=== PATIENT | female | born 1980 | race Caucasian/White ===

== ENCOUNTER → 2016-08-17 | Outpatient (CLI) | payer BC ==
[2016-08-17 12:19] LABS: SEMEN VOLUME 3.5 ML
== END | disposition home or self-care (01) ==
LOC: C.LAB 12:07
PROVIDERS: ATTEND Obstetrics & Gynecology
DX: N97.9 Female infertility, unspecified (principal)

== ENCOUNTER → 2016-10-19 | Outpatient (CLI) | payer BC | END | disposition home or self-care (01) | LOC: C.LAB 12:16 | PROVIDERS: ATTEND Obstetrics & Gynecology | DX: N97.9 Female infertility, unspecified (principal) ==

== ENCOUNTER → 2017-01-05 | Outpatient (CLI) | payer BC | END | disposition home or self-care (01) | LOC: C.LAB 10:03 | PROVIDERS: ATTEND Specialist | DX: O09.00 Supervision of pregnancy with history of infertility, unspecified trimester (principal); Z3A.00 Weeks of gestation of pregnancy not specified; Z31.41 Encounter for fertility testing ==

== ENCOUNTER → 2017-01-11 | Outpatient (CLI) | payer BC | END | disposition home or self-care (01) | LOC: C.LAB 10:50 | PROVIDERS: ATTEND Specialist | DX: Z31.41 Encounter for fertility testing (principal) ==

== ENCOUNTER → 2017-01-13 | Outpatient (CLI) | payer BC | END | disposition home or self-care (01) | LOC: C.LAB 10:44 | PROVIDERS: ATTEND Specialist | DX: Z31.41 Encounter for fertility testing (principal) ==

== ENCOUNTER → 2017-01-15 | Outpatient (CLI) | payer BC | END | disposition home or self-care (01) | LOC: C.LAB 08:19 | PROVIDERS: ATTEND Specialist | DX: Z31.41 Encounter for fertility testing (principal) ==

== ENCOUNTER → 2017-02-18 | Outpatient (CLI) | payer BC | END | disposition home or self-care (01) | LOC: C.LAB 07:22 | PROVIDERS: ATTEND Specialist | DX: O09.00 Supervision of pregnancy with history of infertility, unspecified trimester (principal); Z3A.00 Weeks of gestation of pregnancy not specified ==

== ENCOUNTER → 2017-03-03 | Outpatient (CLI) | payer BC | END | disposition home or self-care (01) | LOC: C.LAB 07:35 | PROVIDERS: ATTEND Specialist | DX: Z31.41 Encounter for fertility testing (principal) ==

== ENCOUNTER → 2017-03-21 | Outpatient (CLI) | payer BC | END | disposition home or self-care (01) | LOC: C.LAB 06:50 | PROVIDERS: ATTEND Specialist | DX: O09.00 Supervision of pregnancy with history of infertility, unspecified trimester (principal) ==

== ENCOUNTER → 2017-04-14 | Outpatient (CLI) | payer BC | END | disposition home or self-care (01) | LOC: C.LAB 07:37 | PROVIDERS: ATTEND Specialist | DX: Z31.41 Encounter for fertility testing (principal); O09.00 Supervision of pregnancy with history of infertility, unspecified trimester; Z3A.00 Weeks of gestation of pregnancy not specified ==

== ENCOUNTER → 2017-05-04 | Outpatient (CLI) | payer BC | END | disposition home or self-care (01) | LOC: C.LAB 07:24 | PROVIDERS: ATTEND Specialist | DX: Z31.41 Encounter for fertility testing (principal) ==

== ENCOUNTER → 2017-05-23 | Outpatient (CLI) | payer BC | END | disposition home or self-care (01) | LOC: C.LAB 07:31 | PROVIDERS: ATTEND Specialist | DX: O09.00 Supervision of pregnancy with history of infertility, unspecified trimester (principal); Z3A.00 Weeks of gestation of pregnancy not specified ==

== ENCOUNTER → 2017-05-25 | Outpatient (CLI) | payer BC | END | disposition home or self-care (01) | LOC: C.LAB 07:01 | PROVIDERS: ATTEND Specialist | DX: O09.00 Supervision of pregnancy with history of infertility, unspecified trimester (principal) ==

== ENCOUNTER → 2017-05-27 | Outpatient (CLI) | payer BC | END | disposition home or self-care (01) | LOC: C.LAB 06:57 | PROVIDERS: ATTEND Specialist | DX: O09.00 Supervision of pregnancy with history of infertility, unspecified trimester (principal); Z3A.00 Weeks of gestation of pregnancy not specified ==

== ENCOUNTER → 2017-06-03 | Outpatient (CLI) | payer BC ==
[~2017-06-03] MED LIST: CHOL1000 PO; CLR10 PO; ENOX40IN SQ; LBT100 PO; ONDA4TAB10 SL; PRENTAB26 PO; RANI150T3 PO
== END | disposition home or self-care (01) ==
LOC: C.LAB1850 07:01
PROVIDERS: ATTEND Obstetrics & Gynecology
DX: O20.0 Threatened abortion (principal); Z3A.00 Weeks of gestation of pregnancy not specified

== ENCOUNTER → 2017-06-24 | Outpatient (CLI) | payer BC | END | disposition home or self-care (01) | LOC: C.LABSPEC 13:16 | PROVIDERS: ATTEND Obstetrics & Gynecology | DX: O09.811 Supervision of pregnancy resulting from assisted reproductive technology, first trimester (principal) ==

== ENCOUNTER 2017-07-03 17:22 | Emergency (ER) | payer BC ==
[~2017-07-03] VITALS: Ht 185.4 cm; Wt 90.9 kg
[2017-07-03 17:30] VITALS: TEMP 37.3; Ht 185.4 cm; Wt 90.9 kg
[2017-07-03] MEDS ORDERED: SODIUM CHLORIDE 0.9% 1000ML 1,000 ML IV STA ×2 (17:43→19:33)
[2017-07-03] MEDS ORDERED: SODIUM CHLORIDE 0.9% 1000ML 1,000 ML IV ONE (17:43)
--- NOTE | 2017-07-03 17:54 | EMERGENCY ROOM VISIT NOTE ---
History Report prepared by Joseph: Ally Barajas Under the Supervision of: Dr. Kevin Santos M.D. First contact with patient: 17:34 Chief Complaint: NAUSEA Stated Complaint: VOMITING, NAUSEA, HEADACHES * Nursing Triage Summary: 10 wks preg. 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 She reports that she is 10 weeks . She notes that she has had "night nauseousness," though she did not have any vomiting until four days ago. She thought it was the "morning sickness," associated with the , but then she started to have diarrhea today. She notes that she is unable to keep any food down. She notes mild abdominal pain. She notes this is her first . She denies any history of abdominal surgeries. She denies any fever, urinary symptoms, back pain, leg pain, leg swelling, or vaginal discharge. 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 Review of Systems See HPI for pertinent positives & negatives. A total of 10 systems reviewed and were otherwise negative. Past Medical & Surgical Medical Problems: (1) Colitis (2) IVF procedures Surgical Problems: (1) H/O shoulder surgery Old medical records were reviewed. Nurse's notes were reviewed and I agree with. Family History Diabetes mellitus FH: heart disease FHx: cancer FHx: gallbladder disease Hypertension Kidney disease Kidney stones Social History Smoking Status: Never Smoker Smokeless Tobacco Use: No Alcohol Use: none Drug Use: none Marital Status: Housing Status: lives with significant other Occupation Status: employed Current/Historical Medications Scheduled Cholecalciferol (Vitamin D3), 1,000 INTER.UNIT PO DAILY Enoxaparin (Lovenox), 40 MG SQ DAILY Multivit/Min/Iron/Fol Ac/Pren ( Vitamin), 1 TAB PO DAILY Ondasetron Odt (Zofran Odt), 4 MG SL Q6H Ranitidine Hcl (Zantac), 1 TAB PO UD Allergies Coded Allergies: Prochlorperazine (Unverified Allergy, Unknown, 07/03/17) Sulfa Drugs (Unverified Allergy, Unknown, 07/03/17) Physical Exam Vital Signs Date Time Temp Pulse Resp B/P (MAP) Pulse Ox O2 Delivery O2 Flow Rate FiO2 07/03/17 21:30 72 20 117/72 99 07/03/17 20:30 78 20 145/75 99 Room Air 07/03/17 19:30 79 20 161/99 100 Room Air 07/03/17 17:30 37.3 82 18 154/95 99 Room Air Physical Exam General: Non-ill appearing young female in no acute distress. HEENT: Normal cephalic atraumatic. Pupils are equal round and reactive to light. Extraocular movements are intact. Oropharynx is pink with moist mucous membranes. No swelling of the mouth lips or tongue. Neck: Supple with a midline trachea. No meningeal signs or stiffness, no JVD or bruits. No Stridor. Chest: Clear to auscultation bilaterally. No wheezes or rhonchi. No increased work of breathing. Heart: regular rate and rhythm. Abdomen: Soft. Minimal tender to palpation in central abdomen, nondistended without rebound guarding or rigidity. Extremities: No cyanosis clubbing or edema. No calf tenderness or assymetry Spine/Back. Non tender to palpation. No CVA tenderness Skin: Good turgor without rashes. Neurologic exam: Cranial nerves two through 12 are intact. Motor and sensation are intact and symmetrical throughout. Medical Decision & Procedures Laboratory Results 07/03/17 18:14 Red Blood Count 4.50, Mean Corpuscular Volume 84.2, Mean Corpuscular Hemoglobin 28.9, Mean Corpuscular Hemoglobin Concent 34.3, Mean Platelet Volume 10.1, Neutrophils (%) (Auto) 67.6, Lymphocytes (%) (Auto) 24.5, Monocytes (%) (Auto) 5.0, Eosinophils (%) (Auto) 2.5, Basophils (%) (Auto) 0.2, Neutrophils # (Auto) 3.79, Lymphocytes # (Auto) 1.37, Monocytes # (Auto) 0.28, Eosinophils # (Auto) 0.14, Basophils # (Auto) 0.01 07/03/17 18:14 Test 1/7/18 18:14 07/03/17 20:35 White Blood Count 5.60 K/uL (4.8-10.8) Red Blood Count 4.50 M/uL (4.2-5.4) Hemoglobin 13.0 g/dL (12.0-16.0) Hematocrit 37.9 % (37-47) Mean Corpuscular Volume 84.2 fL (80-100) Mean Corpuscular Hemoglobin 28.9 pg (25-34) Mean Corpuscular Hemoglobin Concent 34.3 g/dl (32-36) Platelet Count 185 K/uL (130-400) Mean Platelet Volume 10.1 fL (7.4-10.4) Neutrophils (%) (Auto) 67.6 % Lymphocytes (%) (Auto) 24.5 % Monocytes (%) (Auto) 5.0 % Eosinophils (%) (Auto) 2.5 % Basophils (%) (Auto) 0.2 % Neutrophils # (Auto) 3.79 K/uL (1.4-6.5) Lymphocytes # (Auto) 1.37 K/uL (1.2-3.4) Monocytes # (Auto) 0.28 K/uL (0.11-0.59) Eosinophils # (Auto) 0.14 K/uL (0-0.5) Basophils # (Auto) 0.01 K/uL (0-0.2) RDW Standard Deviation 39.5 fL (36.4-46.3) RDW Coefficient of Variation 13.0 % (11.5-14.5) Immature Granulocyte % (Auto) 0.2 % Immature Granulocyte # (Auto) 0.01 K/uL (0.00-0.02) Anion Gap 6.0 mmol/L (3-11) Est Creatinine Clear Calc Drug Dose 146.6 ml/min Estimated GFR () 130.7 Estimated GFR (Non- 112.8 BUN/Creatinine Ratio 9.5 (10-20) Calcium Level 8.8 mg/dl (8.5-10.1) Total Bilirubin 0.5 mg/dl (0.2-1) Direct Bilirubin 0.1 mg/dl (0-0.2) Aspartate Amino Transf (AST/SGOT) 27 U/L (15-37) Alanine Aminotransferase (ALT/SGPT) 42 U/L (12-78) Alkaline Phosphatase 57 U/L (45-117) Total Protein 7.1 gm/dl (6.4-8.2) Albumin 3.3 gm/dl (3.4-5.0) Lipase 197 U/L (73-393) Human Chorionic Gonadotropin, Quant 83614 mIU/mL Urine Color YELLOW Urine Appearance CLEAR (CLEAR) Urine pH 5.5 (4.5-7.5) Urine Specific Leo 1.018 (1.000-1.030) Urine Protein NEG (NEG) Urine Glucose (UA) NEG (NEG) Urine Ketones 3+ (NEG) Urine Occult Blood NEG (NEG) Urine Nitrite NEG (NEG) Urine Bilirubin NEG (NEG) Urine Urobilinogen NEG (NEG) Urine Leukocyte Esterase TRACE (NEG) Urine WBC (Auto) 1-5 /hpf (0-5) Urine RBC (Auto) 0-4 /hpf (0-4) Urine Hyaline Casts (Auto) 1-5 /lpf (0-5) Urine Epithelial Cells (Auto) 10-20 /lpf (0-5) Urine Bacteria (Auto) NEG (NEG) Laboratory studies as stated above per my review. Medications Administered Medications (Trade) Dose Ordered Sig/Karly Route Start Time Stop Time Status Last Admin Dose Admin Sodium Chloride 1,000 ml @ 999 mls/hr Q1H1M STAT IV 07/03/17 17:43 07/03/17 18:43 DC 07/03/17 17:43 999 MLS/HR Sodium Chloride 1,000 ml @ 200 mls/hr Q5H ONCE IV 07/03/17 17:43 07/03/17 22:16 DC 07/03/17 20:30 200 MLS/HR Ondansetron HCl (Zofran Inj) 4 mg NOW STAT IV 07/03/17 19:33 07/03/17 19:34 DC 07/03/17 19:42 4 MG Sodium Chloride 1,000 ml @ 999 mls/hr Q1H1M STAT IV 07/03/17 19:33 07/03/17 20:33 DC 07/03/17 19:33 999 MLS/HR Ondansetron HCl (ZOFRAN ODT 4MG Home Pack) 1 homepack UD ONCE PO 07/03/17 20:30 07/03/17 20:31 DC 07/03/17 21:20 1 HOMEPACK ED Course 1736: Past medical records reviewed. The patient was evaluated in room A2, and a complete history and physical examination were performed. 1742: Ordered Sodium Chloride 1,000 ml @ 999 mls/hr IV 1842: I reassessed the patient at this time. She is resting comfortably. 1921: I spoke with SANTO Torres. She recommends Zofran and does not feel the vomiting is related to IVF medication. She agreed with the treatment plan. 1929: I reassessed the patient at this time. She is resting comfortably. 1932: Ordered Zofran 4mg IV 2004: I reassessed the patient at this time. She is feeling better and resting comfortably. I discussed the results and treatment plan with the patient. I answered all pertaining questions that she had. She expressed understanding and verbalized agreement. The patient will be discharged home. 2030: Ordered Zofran 1 [facility] Medical Decision Differentials include, but are not limited to: dehydration, complication, morning sickness, gastritis, and, electrolyte or metabolic abnormality. This patient comes in as described above. She is and has had in vitro fertilization .she's had two ultrasounds which show IUP. She's had nausea, vomiting, or diarrhea. Her may also be mildly sick. She has had some mild morning sickness type symptoms. On exam, she has minimal tenderness. She has no lower abdominal symptoms or any vaginal bleeding or discharge to suggest miscarriage or ectopic . again she has an ultrasound which demonstrates IUP. IV access established hydrated with IV normal saline. She was given a total of 2 L IV normal saline while she was here. she was also given Zofran 4 mg IV. She's had no white count or fever to suggest infection. She has no acute electrolyte or metabolic abnormalities. Her quantitative hCG was 66,000. I did discuss the case with Dr. Mancuso who agrees with the plan. The patient was tolerating fluids. her abdomen is benign she will be discharged home with some Zofran if needed rest and drink plenty fluids mild diet. return if: worsening of symptoms, fever or chills, increasing pain, any new problems or concerns. The patient has were happy with plan and discharged to home. Medication Reconcilliation Current Medication List: was personally reviewed by me Blood Pressure Screening Patient's blood pressure: Elevated blood pressure Blood pressure disposition: Elevated BP felt to be situational, Referred to PCP Consults Time Called: 1918 Consulting Physician: SANTO Torres Returned Call: 1921 I spoke with SANTO Torres. She recommends Zofran and does not feel the vomiting is related to IVF medication. She agreed with the treatment plan. Impression Primary Impression: Nausea, vomiting, and diarrhea Additional Impression: Scribe Attestation The scribe's documentation has been prepared under my direction and personally reviewed by me in its entirety. I confirm that the note above accurately reflects all work, treatment, procedures, and medical decision making performed by me. Departure Information Dispostion Home / Self-Care Prescriptions Ondasetron Odt (ZOFRAN ODT) 4 Mg Tab 4 MG SL Q6H for Nausea, #10 TAB Prov: Kevin Santos M.D. 07/03/17 Referrals No Doctor, Assigned (PCP) Forms HOME CARE DOCUMENTATION FORM, IMPORTANT VISIT INFORMATION Patient Instructions My [facility] Additional Instructions Rest. Drink plenty of fluids. For nausea May use Zofran 4 mg every 6 hours if needed Return if: Worsening of symptoms, not tolerating fluids, vaginal bleeding or discharge, significant abdominal pain, any new problems or concerns Follow-up with your doctor early this week for recheck Problem Qualifiers
[2017-07-03] MEDS ORDERED: RANI150T3 PO (17:59)
[2017-07-03] MEDS ORDERED: PRENTAB26 PO (17:59)
[2017-07-03] MEDS ORDERED: CHOL1000 PO (18:32)
[2017-07-03] MEDS ORDERED: ENOX40IN SQ (18:32)
[2017-07-03 18:33] LABS: BASO % 0.2 %; BASO ABS # 0.01 K/uL (0-0.2); EOS % 2.5 %; EOS ABS # 0.14 K/uL (0-0.5); HEMATOCRIT 37.9 % (37-47); IG# 0.01 K/uL (0.00-0.02); LYMPH % 24.5 %; LYMPH ABS # 1.37 K/uL (1.2-3.4); MEAN CELL VOLUME 84.2 fL (80-100); MEAN CORPUSCULAR HEMOGLOBIN 28.9 pg (25-34); MEAN CORPUSCULAR HGB CONC 34.3 g/dl (32-36); MEAN PLATELET VOLUME 10.1 fL (7.4-10.4); MONO ABS # 0.28 K/uL (0.11-0.59); NEUT % 67.6 %; NEUT ABS # 3.79 K/uL (1.4-6.5); PLATELET COUNT 185 K/uL (130-400); RED CELL DISTRIBUTION WIDTH SD 39.5 fL (36.4-46.3)
[2017-07-03 18:54] LABS: ALBUMIN 3.3 gm/dl (3.4-5.0); CALCIUM 8.8 mg/dl (8.5-10.1); CREATININE 0.69 mg/dl (0.60-1.20); POTASSIUM 3.7 mmol/L (3.5-5.1)
[2017-07-03 19:03] LABS: TOTAL PROTEIN 7.1 gm/dl (6.4-8.2)
[2017-07-03] MEDS ORDERED: ONDANSETRON INJ 2 MG/ML 2 ML VIAL IV STA (19:33)
[2017-07-03] MEDS ORDERED: ONDA4TAB10 SL (20:05)
[2017-07-03] MEDS ORDERED: ONDANSETRON HOME PACK 4MG OD TAB PO ONE (20:30)
[2017-07-03 21:30] VITALS: BP 117/72; PULSE 72; O2SAT 99
== END 2017-07-03 21:30 | disposition home or self-care (01) ==
LOC: C.EDB 17:23 → C.EDA 21:30
DX: R11.10 Vomiting, unspecified (principal); R19.7 Diarrhea, unspecified; Z33.1 Pregnant state, incidental; Z83.3 Family history of diabetes mellitus; Z82.49 Family history of ischemic heart disease and other diseases of the circulatory system; Z84.1 Family history of disorders of kidney and ureter

== ENCOUNTER → 2017-07-08 | Outpatient (CLI) | payer BC ==
[~2017-07-08] MED LIST changes: -CLR10 PO; -LBT100 PO
[2017-07-08 17:33] LABS: BASO % 0.4 %; BASO ABS # 0.02 K/uL (0-0.2); EOS % 2.6 %; EOS ABS # 0.14 K/uL (0-0.5); HEMATOCRIT 35.6 % (37-47); HEMOGLOBIN 12.3 g/dL (12.0-16.0); IG# 0.02 K/uL (0.00-0.02); LYMPH ABS # 1.57 K/uL (1.2-3.4); MEAN CORPUSCULAR HGB CONC 34.6 g/dl (32-36); MEAN PLATELET VOLUME 10.4 fL (7.4-10.4); MONO % 5.4 %; MONO ABS # 0.29 K/uL (0.11-0.59); NEUT % 62.2 %; NEUT ABS # 3.37 K/uL (1.4-6.5); PLATELET COUNT 185 K/uL (130-400); RED CELL DISTRIBUTION WIDTH CV 13.2 % (11.5-14.5); RED CELL DISTRIBUTION WIDTH SD 39.8 fL (36.4-46.3); WHITE BLOOD COUNT 5.41 K/uL (4.8-10.8)
== END | disposition home or self-care (01) ==
LOC: C.LAB1850 16:29
PROVIDERS: ATTEND Obstetrics & Gynecology
DX: O09.511 Supervision of elderly primigravida, first trimester (principal)

== ENCOUNTER → 2017-08-12 | Outpatient (CLI) | payer BC | END | disposition home or self-care (01) | LOC: C.LAB1850 14:26 | PROVIDERS: ATTEND Obstetrics & Gynecology | DX: O09.812 Supervision of pregnancy resulting from assisted reproductive technology, second trimester (principal); Z3A.00 Weeks of gestation of pregnancy not specified ==

== ENCOUNTER → 2017-11-04 | Outpatient (CLI) | payer BC ==
[2017-11-04 16:39] LABS: HEMATOCRIT 33.3 % (37-47); HEMOGLOBIN 11.3 g/dL (12.0-16.0)
== END | disposition home or self-care (01) ==
LOC: C.LAB1850 14:38
PROVIDERS: ATTEND Obstetrics & Gynecology
DX: O09.813 Supervision of pregnancy resulting from assisted reproductive technology, third trimester (principal); Z3A.00 Weeks of gestation of pregnancy not specified

== ENCOUNTER 2018-01-28 00:17 | Outpatient (CLI) | payer BC ==
[~2018-01-28] VITALS: Ht 185.4 cm; Wt 120.0 kg
[~2018-01-28 00:17] MED LIST changes: -ONDA4TAB10 SL
[2018-01-28 02:15] VITALS: Ht 185.4 cm; Wt 120.0 kg
--- NOTE | 2018-02-02 08:02 | EDITING REQUIRED CODING QUERY ---
DIAGNOSIS NEEDED To promote full compliance with coding requirements relating to patient care, physician participation is requested in all cases of workplace trainer and assessor uncertainty. Please assist us with the question(s) below: Coding Question: The patient received care in labor and delivery on 01/28/18 as noted within the record. Please document the diagnosis that is being addressed by the medication/treatment. Provider Response: DIAGNOSIS: R/O Rupture of Membranes WEEKS OF GESTATION: Thank you for your assistance, Apoorva Mcclure - Plate Painter Apprentice
== END 2018-01-28 01:30 | disposition home or self-care (01) ==
LOC: C.OPB 00:17 → C.LD 00:17 → C.OPB 01:30
PROVIDERS: ATTEND Obstetrics & Gynecology
DX: O09.513 Supervision of elderly primigravida, third trimester (principal); Z3A.00 Weeks of gestation of pregnancy not specified

== ENCOUNTER 2018-02-01 18:58 | Outpatient (CLI) | payer BC ==
[~2018-02-01] VITALS: Ht 185.4 cm; Wt 120.5 kg
[2018-02-01 20:00] VITALS: Ht 185.4 cm; Wt 120.5 kg
[2018-02-02] MEDS ORDERED: CLR10 PO (08:43)
== END 2018-02-01 21:13 | disposition home or self-care (01) ==
LOC: C.LD 18:58 → C.OPB 18:58
PROVIDERS: ATTEND Obstetrics & Gynecology
DX: O26.893 Other specified pregnancy related conditions, third trimester (principal); O09.513 Supervision of elderly primigravida, third trimester; Z3A.00 Weeks of gestation of pregnancy not specified

== ENCOUNTER 2018-02-02 07:36 | Inpatient (IN) | payer BC ==
[~2018-02-02] VITALS: Ht 185.4 cm; Wt 120.5 kg
[2018-02-02] MEDS ORDERED: LACTATED RINGER'S 1000ML 500 ML IV PRN ×2 (07:42→11:17)
[2018-02-02] MEDS ORDERED: LACTATED RINGER'S 1000ML 1,000 ML IV PRN (07:42)
[2018-02-02] MEDS ORDERED: OXYTOCIN 30 UNITS/500ML NSS IV PRN ×2 (07:45→23:00)
[2018-02-02 08:30] LABS: HEMOGLOBIN 12.4 g/dL (12.0-16.0); MEAN CELL VOLUME 82.9 fL (80-100); MEAN CORPUSCULAR HEMOGLOBIN 28.6 pg (25-34); MEAN CORPUSCULAR HGB CONC 34.4 g/dl (32-36); MEAN PLATELET VOLUME 10.8 fL (7.4-10.4); PLATELET COUNT 192 K/uL (130-400); RED CELL DISTRIBUTION WIDTH CV 13.4 % (11.5-14.5); WHITE BLOOD COUNT 10.16 K/uL (4.8-10.8)
[2018-02-02] MEDS: LACTATED RINGER'S 1000ML 1,000 ML IV SCH ×3 (08:39→19:51)
[2018-02-02] MEDS ORDERED: CLR10 PO (08:43)
[2018-02-02 08:47] VITALS: Ht 185.4 cm; Wt 120.5 kg
[2018-02-02 10:11] LABS: ALBUMIN 2.7 gm/dl (3.4-5.0); CREATININE 0.78 mg/dl (0.60-1.20); POTASSIUM 3.9 mmol/L (3.5-5.1); TOTAL PROTEIN 6.8 gm/dl (6.4-8.2)
[2018-02-02] MEDS ORDERED: EpHEDrine SULFATE INJ 50 MG/ML AMP ONE (10:24)
[2018-02-02] MEDS ORDERED: BUPIVACAINE 0.25% 30 ML VIAL ONE ×2 (10:24→11:26)
[2018-02-02] MEDS ORDERED: FENTANYL CITRATE INJ 50 MCG/1 ML 2 ML VIAL ONE ×3 (10:24→22:06)
[2018-02-02] MEDS ORDERED: FENTANYL 2MCG/ML ROPIV 1.25MG/ML 100ML BAG ONE (10:25)
[2018-02-02] MEDS ORDERED: NALOXONE HCL INJ 1 MG in SODIUM CHLORIDE 0.9% 1000ML 1,000 ML IV PRN (11:17)
[2018-02-02] MEDS ORDERED: NIFEdipine 10 MG CAP PO STA ×3 (11:26→20:44)
[2018-02-02] MEDS ORDERED: EpHEDrine SULFATE INJ 50 MG/ML AMP IV PRN ×2 (11:30→23:15)
[2018-02-02] MEDS ORDERED: ONDANSETRON INJ 2 MG/ML 2 ML VIAL IV PRN ×2 (11:30→23:15)
[2018-02-02] MEDS ORDERED: NALOXONE HCL INJ 0.4 MG/1 ML VIAL/CARP IV PRN (11:30)
[2018-02-02] MEDS ORDERED: NALBUPHINE HCL INJ 10 MG/ML 1ML AMP IV PRN (11:30)
[2018-02-02] MEDS ORDERED: DiphenhydrAMINE HCL 50 MG/ML VIAL IV PRN (11:30)
[2018-02-02] MEDS: FENTANYL 2MCG/ML ROPIV 1.25MG/ML 100ML BAG EPI PRN ×3 (12:18→16:56)
--- NOTE | 2018-02-02 17:17 | Anesthesiology Progress Note ---
Anesthesia Progress Note Date of Service Feb 02, 2018. Progress Notes Earlier I made multiple attempts to treat this patient's pain with her existing epidural but was unable to adequately control her pain and the decision was made to redo it. I went on level above her previous epidural insertion site and it was easily inserted after sterile prep and drape. GENEVIEVE at 9cm to air. Catheter easily inserted to 13cm at the skin and secured in place. A total of 10ml of 0.125% bupivicaine with 100mcg fentanyl was given and after fifteen minutes patient's pain decreased to zero. VSS as she was on monitor the entire time.
[2018-02-02] MEDS ORDERED: FENTANYL 2MCG/ML ROPIV 1.25MG/ML 100ML BAG EPI PRN ×2 (17:45→20:00)
[2018-02-02] MEDS ORDERED: NIFEdipine 10 MG CAP ONE (20:32)
[2018-02-02] MEDS ORDERED: CARBOPROST TROMETHAMINE 250 MCG/ML AMP ONE (21:47)
[2018-02-02] MEDS ORDERED: BUTORPHANOL TARTRATE 1 MG/ML VIAL ONE ×3 (21:49→23:17)
[2018-02-02] MEDS ORDERED: PROPOFOL IV EMULSION 10 MG/ML 20 ML VIAL ONE (22:08)
[2018-02-02] MEDS ORDERED: SUCCINYLCHOLINE CHLORIDE 20 MG/ML 10 ML VIAL IV ONE (22:08)
[2018-02-02] MEDS ORDERED: ONDANSETRON INJ 2 MG/ML 2 ML VIAL ONE (22:22)
[2018-02-02] MEDS ORDERED: DEXAMETHASONE SOD INJ 4 MG/ML VIAL ONE (22:22)
[2018-02-02] MEDS ORDERED: CEFAZOLIN SOD 1 GM VIAL ONE (22:22)
[2018-02-02] MEDS ORDERED: OXYTOCIN INJ 10 UNITS/ML VIAL ONE (22:22)
[2018-02-02] MEDS ORDERED: MISOPROSTOL 200 MCG TAB PR ONE (22:26)
[2018-02-02 22:42] LABS: INR 0.9 (0.9-1.1); PTT PATIENT 24.8 SECONDS (21.0-31.0)
[2018-02-02] MEDS ORDERED: CEFAZOLIN IV 1,000 MG in DEXTROSE 5% 50ML 50 ML IV STA (22:49)
[2018-02-02 22:54] LABS: CREATININE 1.15 mg/dl (0.60-1.20); TOTAL PROTEIN 5.2 gm/dl (6.4-8.2)
[2018-02-02] MEDS ORDERED: OXYCODONE/ACETAMINOPHEN 5-325 TAB PO PRN (23:00)
[2018-02-02] MEDS ORDERED: HYDROCORTISONE ACETATE 25 MG SUPP PR PRN (23:00)
[2018-02-02] MEDS ORDERED: CARBOPROST TROMETHAMINE 250 MCG/ML AMP IM ONE ×2 (23:00)
[2018-02-02] MEDS ORDERED: LANOLIN OINT EXT PRN (23:00)
[2018-02-02] MEDS ORDERED: BENZOCAINE 20% AER SPR 82.5 GM CAN EXT PRN (23:00)
[2018-02-02] MEDS ORDERED: SUPERCREAM 0.870 % 15GM JAR EXT PRN (23:00)
[2018-02-02] MEDS ORDERED: ACETAMINOPHEN 325 MG TAB PO PRN (23:00)
[2018-02-02] MEDS ORDERED: DIPHTHERIA/TETANUS/PERTUSSIS 0.5 ML SYR/VIAL IM. ONE (23:00)
[2018-02-02] MEDS ORDERED: CEFAZOLIN IV 1,000 MG in SYRINGE 0 ML IV ONE (23:00)
[2018-02-02] MEDS ORDERED: MISOPROSTOL 200 MCG TAB PR SCH (23:00)
[2018-02-02 23:03] LABS: HEMATOCRIT 31.5 % (37-47); HEMOGLOBIN 10.6 g/dL (12.0-16.0); MEAN CELL VOLUME 84.5 fL (80-100); MEAN CORPUSCULAR HEMOGLOBIN 28.4 pg (25-34); MEAN CORPUSCULAR HGB CONC 33.7 g/dl (32-36); MEAN PLATELET VOLUME 10.6 fL (7.4-10.4); PLATELET COUNT 242 K/uL (130-400); RED CELL DISTRIBUTION WIDTH CV 13.8 % (11.5-14.5); RED CELL DISTRIBUTION WIDTH SD 42.4 fL (36.4-46.3); WHITE BLOOD COUNT 24.82 K/uL (4.8-10.8)
--- NOTE | 2018-02-02 23:03 | Anesthesia Procedure Note ---
Anesthesia Epidural Removal Nt Date & Time Feb 02, 2018 at 23:02 Vital Signs Pain Intensity: 4.0 Notes Mental Status: alert / awake / arousable, participated in evaluation Nausea / Vomiting: adequately controlled Pain: adequately controlled Airway Patency, RR, SpO2: stable & adequate BP & HR: stable & adequate Hydration State: stable & adequate Neuraxial Anesthesia: was administered, sensory block is resolved Anesthetic Complications: no major complications apparent, pt satisfied with anesthetic care Epidural: removed without complications, with tip intact
[2018-02-02 23:06] LABS: POTASSIUM 4.5 mmol/L (3.5-5.1)
[2018-02-02 23:07] LABS: CALCIUM 7.3 mg/dl (8.5-10.1)
[2018-02-02] MEDS ORDERED: PHENYLEPHRINE 100MCG/ML 5ML SYR IV PRN (23:15)
[2018-02-02] MEDS ORDERED: ATROPINE SULFATE 0.1 MG/ML 5ML SYR IV PRN (23:15)
[2018-02-02] MEDS ORDERED: FENTANYL CITRATE INJ 50 MCG/1 ML 2 ML VIAL IV PRN (23:15)
--- NOTE | 2018-02-02 23:20 | [facility] Post Operative Brief Note ---
Immediate Operative Summary Operative Date Feb 02, 2018. Pre-Operative Diagnosis 1. hemorrhage 2. s/p 3. retained placenta Post-Operative Diagnosis same Procedure(s) Performed EUA, curettage of uterus, placement of bakri balloon, repair of 2nd degree perineal laceration Surgeon amame Nuclear Chemistry Technician Surgeon(s) none Estimated Blood Loss 500cc Findings See Below (uterus with retained fragments of tissue suspected placenta, poor tone. 2nd degree tear) uterus with no tone, fragments suspected placenta tissue removed, Fluids (cc crystalloids) 1000 Specimens placenta fragments Drains None Anesthesia Type General Complication(s) none Disposition Accompanied Pt To Recover: yes Disposition: L&D
--- NOTE | 2018-02-02 23:24 | DIAGNOSTIC IMAGING REPORT ---
KUB CLINICAL HISTORY: Postoperative examination. Missing surgical sponge. FINDINGS: An AP, portable, supine abdominal radiograph is obtained. No prior studies are available for comparison at the time of dictation. There is a nonobstructed abdominal bowel gas pattern. A coiled radiodense structure projects over the pelvis and may represent a retained surgical sponge. The bony structures appear intact. IMPRESSION: 1. Nonobstructed abdominal bowel gas pattern. 2. A coiled radiodensity in the pelvis may represent a retained surgical sponge. Electronically signed by: Femi Justin M.D. 02/02/2018 11:23 PM Dictated Date/Time: 02/02/2018 11:22 PM
--- NOTE | 2018-02-02 23:24 | OPERATIVE REPORT ---
DATE OF OPERATION: 02/02/2018 PREOPERATIVE DIAGNOSES: 1. hemorrhage. 2. Retained placental fragments. 3. Status post normal spontaneous vaginal delivery with 2nd degree perineal laceration POSTOPERATIVE DIAGNOSES: 1. hemorrhage. 2. Retained placental fragments. 3. Status post normal spontaneous vaginal delivery with 2nd degree perineal laceration. PROCEDURE: 1. Exam under anesthesia. 2. Curettage of the uterus. 3. Placement of new Bakri balloon. 4. Repair of 2nd degree perineal laceration SURGEON: Dr. Cynthia Santos. CONFIGURATION DEVELOPER: None. IV FLUIDS: 1000 mL. ESTIMATED BLOOD LOSS: 1000 mL. FINDINGS: Uterus not well contracted down. With curettage, tissue fragments were removed, sent for pathology. Additional Hemabate was given in the operating room after rectal Cytotec and Hemabate in the labor and delivery room have already been given. Bakri balloon in place. No cervical lacerations noted. Perineal laceration repaired at the end of the procedure. INDICATIONS: A 38-year-old 1, para 0 who just delivered via normal spontaneous vaginal delivery of a viable female , who subsequently had a hemorrhage with approximately 500 mL of bleeding in the room and on bedside exam evidence of retained fragments of placenta and was counseled to come to the operating room for exam under anesthesia and curettage. A Bakri balloon had been placed in the delivery room just to tamponade the bleeding to get the patient to the operating room. PROCEDURE IN DETAIL: The patient taken to the operating room and identified. After adequate general anesthesia was obtained, she was placed in the dorsal lithotomy position. The nursing staff removed the existing Bakri balloon. She was prepped and draped in the usual sterile fashion. A weighted speculum and anterior retractor placed to visualize the cervix, which was grasped on its anterior lip with a sponge stick. The uterus has already been explored and the remaining fragments of placenta tissue were suspected. The curettage was performed and the tissue fragments were further removed manually. They were sent as separate specimen. A new Bakri balloon was replaced after a Dolan catheter had been placed under sterile conditions. The balloon was inflated with approximately 360 mL of water. The bleeding had slowed significantly. The bleeding was watched. Second degree perineal laceration was repaired with 3-0 Vicryl in the usual fashion. Again, the bleeding was consistently decreased. At this point, the procedure was terminated. The patient was awoken from anesthesia after she was returned to the supine position. She was transferred to the labor and delivery recovery room in stable condition. Sponge count was inaccurate and therefore a bedside x-ray was ordered with results pending. The needle count was correct. I attest to the content of the Intraoperative Record and any orders documented therein. Any exceptions are noted below. MTDD
--- NOTE | 2018-02-02 23:27 | Anesthesiology Progress Note ---
Anesthesia Progress Note Date of Service Feb 02, 2018. Progress Notes Called by OB nursing as Ms. Ayala delivered but had retained placenta that was unable to be removed in patient's delivery room. Dr. Santos informed staff that patient needed to be taken emergently to the OB operating room for exam under anesthesia and removal of retained placenta for control of her hemorrhage. I immediately came up and prepared OB OR as patient was being brought into the operating room. Patient was known to me previously from placing an epidural for control of pain during her labor. I obtained verbal consent for general anesthesia as I placed her on STD ASA monitors in the operating room. She was preoxygenated and had an RSI done with propofol/ succinylcholine along with fentanyl and phenylephrine. 6.5 cuffed ETT was easily inserted with a glidescope #4 and its placement was confirmed with EtCO2 and auscultation (along with direct visualization of ETT passing through cords on glidescope screen). Patient had IVF running wide open and required multiple doses of vasoactive medications to maintain her blood pressure during the procedure. Pitocin was continued via piggyback and she required one dose of hemabate IM per Dr. Santos. Placenta products were removed and Bakri balloon was placed afterwards. Per Dr. Santos, bleeding very much improved. Total estimated blood loss from the period was estimated at 1 liter. TXA discussed but deemed not necessary as adequate hemostasis was achieved. During the short procedure, lab was called and a outbound sales specialist came into the OR and chayo STAT CBC , CMP and coags. CBC after procedure was approx 10/30. After end of procedure, patient was spontaneously breathing and was extubated without incident. She was awake and conversant and epidural catheter was removed upon transfer to her hospital bed. Patient was transported to OB recover with FM O2 and full report was given to OB RN. Patient was tachycardic in recovery but was NOT hypotensive. Care turned back over to the OB team.
--- NOTE | 2018-02-02 23:31 | Anesthesiology Progress Note ---
Anesthesia Post Op Note Date & Time Feb 02, 2018 at 23:30 Vital Signs Pain Intensity: 8.0 Notes Mental Status: alert / awake / arousable, participated in evaluation Pt Amnestic to Procedure: Yes Nausea / Vomiting: adequately controlled Pain: adequately controlled Airway Patency, RR, SpO2: stable & adequate BP & HR: see Notes Hydration State: stable & adequate Anesthetic Complications: no major complications apparent Tachycardic but NOT hypotensive. See previous anesthesia notes for details of this case.
--- NOTE | 2018-02-02 23:35 | DELIVERY SUMMARY ---
DATE OF OPERATION: 02/02/2018 The patient pushed to deliver a viable female , Apgars of 8 and 9 via over second-degree perineal laceration. Mouth and nose bulb suctioned at the perineum. Shoulders and body delivered with ease with further effective maternal expulsive efforts. was vigorous and crying at . Cord was clamped at 30 seconds of life and then infant to maternal abdomen, where the cord was then doubly clamped and cut. Cervix and sulci intact. The laceration began to be repaired with 3-0 Vicryl while awaiting the placenta. Of note, cord blood for donation as well as cord blood for typing were obtained. With traction on the umbilical cord, the placenta was not easily released. The bleeding was increasing. The tip of the placenta was at the cervical os. The cord tore at the opening of the introitus and despite continued traction the placenta was not releasing. The bleeding increased again and for that reason, the human resource assistant's hand was placed through the cervix into the uterine cavity and the placenta was delivered. With an additional sweep of the uterus, additional retained placental fragments were noted. The uterine tone was poor. IV Pitocin was begun. Banjo curette was brought to the patient's bedside. Ring forcep was placed on the anterior lip and the curette was gently placed through the cervix to curettage the uterus. The placental fragments were attempted to be removed. With the hand in the uterine cavity, the tone was still poor and there were tissue fragment still remaining that were difficult to remove. The patient had virtually no pain coverage with her epidural and despite stadol. Given the persistent bleeding and my need to do a better exam under anesthesia and curettage the patient was counseled about going to sleep for further evaluation and management of the bleeding. A bakri ballon was placed at the patient's bedside to tamponade the uterus while she was transported to the operating room for procedures. She was given verbal informed consent. Anesthesia was notified and the supervising nurse for the unit was notified to proceed back to the operating room here on the fourth floor. I attest to the content of the Intraoperative Record and any orders documented therein. Any exceptions are noted below. CRISTINA
--- NOTE | 2018-02-02 23:37 | Progress Note ---
Progress Note Date of Service Feb 02, 2018. Progress Note Informed that OR sponge count still not correct and bedside kub suspicious for sponge in vagina. Pt informed and given stadol 2mg iv for vaginal exam at bedside and sponge removed. KUB reordered to confirm no retained sponges. Pt aware that this was my error with exam at close of procedure in OR, I could not tell that sponge was in vagina. Was most important to find and retrieve which was done. Aware another xray to be done to confirm. Discussed labs with couple, hgb noted, expect it to drift possibly to 8. Will plan recheck approx 4am with repeat creatinine.
--- NOTE | 2018-02-02 23:54 | DIAGNOSTIC IMAGING REPORT ---
KUB CLINICAL HISTORY: Sponge count recheck. FINDINGS: 2 AP, portable, supine abdominal radiographs are compared to study performed earlier the same day 02/02/2018. The retained surgical sponge in the pelvis is no longer identified. There is no radiographic evidence of bowel obstruction. Mildly distended and gas-filled loops of small bowel may represent a mild ileus. These measure up to 3.0 cm. No abnormal abdominal calcifications are identified. The bony structures appear intact. IMPRESSION: 1. The surgical sponge in the pelvis is no longer identified. 2. There is no radiographic evidence of bowel obstruction. 3. Mildly distended and gas-filled loops of small bowel are nonspecific and likely represent a mild ileus. Clinical correlation will be required. Electronically signed by: Femi Justin M.D. 02/02/2018 11:52 PM Dictated Date/Time: 02/02/2018 11:51 PM
[2018-02-03] MEDS: OXYTOCIN INJ 20 UNITS in LACTATED RINGER'S 1000ML 1,000 ML IV SCH ×2 (00:44→08:38)
[2018-02-03 04:14] LABS: HEMATOCRIT 27.1 % (37-47); HEMOGLOBIN 9.2 g/dL (12.0-16.0)
[2018-02-03] MEDS ORDERED: NURSING VERBAL MED ORDER ONE (07:00)
[2018-02-03] MEDS ORDERED: CEFAZOLIN IV 3,000 MG in DEXTROSE 5% 50ML 50 ML IV SCH (08:00)
[2018-02-03] MEDS: CEFAZOLIN IV 3,000 MG in SYRINGE 0 ML IV SCH ×2 (08:02→15:52)
[2018-02-03] MEDS: DOCUSATE SODIUM 100 MG CAP PO SCH ×2 (08:02→20:33)
--- NOTE | 2018-02-03 08:57 | Progress Note ---
Progress Note Date of Service Feb 03, 2018. Progress Note s/ pt feels pretty well this am. she is not having significant bleeding. taylor draining. no cp/sob. no n/v. no pain issues o/ af bps 160s/90 cor rrr, lungs ctab, abd soft ff 2 down ext nt calves, no edema a/ ppd/pod #1 s/p , pph, curettage and bakri balloon p/ doing well now, hgb overnight reasonable for suspected blood loss, creat was not done as ordered wrong. will recheck labs at 10am. bakri balloon remains. pt aware oncoming MD will decide about when to remove. plan abx. 2 units on hold in case needed. given bps will start labetalol. reviewed findings with couple again and they deny further questions and express appreciation for care.
[2018-02-03] MEDS: IBUPROFEN 600 MG TAB PO PRN ×3 (10:01→23:47)
[2018-02-03 10:22] LABS: HEMATOCRIT 24.7 % (37-47); HEMOGLOBIN 8.3 g/dL (12.0-16.0); MEAN CELL VOLUME 83.2 fL (80-100); MEAN CORPUSCULAR HEMOGLOBIN 27.9 pg (25-34); MEAN CORPUSCULAR HGB CONC 33.6 g/dl (32-36); MEAN PLATELET VOLUME 10.5 fL (7.4-10.4); PLATELET COUNT 191 K/uL (130-400); RED CELL DISTRIBUTION WIDTH CV 13.8 % (11.5-14.5); RED CELL DISTRIBUTION WIDTH SD 42.5 fL (36.4-46.3); WHITE BLOOD COUNT 21.02 K/uL (4.8-10.8)
[2018-02-03] MEDS: LABETALOL HCL 100 MG TAB PO SCH ×2 (10:28→20:33)
[2018-02-03 10:51] LABS: CREATININE 0.84 mg/dl (0.60-1.20)
[2018-02-03 11:30] VITALS: BP 129/76; PULSE 93; TEMP 36.8
[2018-02-03 16:05] VITALS: BP 137/78; PULSE 103; TEMP 36.8
[2018-02-03] MEDS ORDERED: OXYTOCIN 30 UNITS/500ML NSS IV PRN (17:15)
[2018-02-03] MEDS ORDERED: OXYTOCIN INJ 20 UNITS in LACTATED RINGER'S 1000ML 1,000 ML IV PRN (17:30)
[2018-02-03 19:40] VITALS: BP 147/83; PULSE 105; TEMP 36.9; O2SAT 100
--- NOTE | 2018-02-03 19:43 | Progress Note ---
Progress Note Date of Service Feb 03, 2018. Progress Note Asymptomatic. Vitals stable. Scant lochia, 45cc output through bakri balloon. 100cc fluid removed (of total 360cc) from Bakri, now 260cc remains. Will monitor for the next hour, then plan to continue removing fluid if stable.
--- NOTE | 2018-02-03 20:58 | Progress Note ---
Progress Note Date of Service Feb 03, 2018. Progress Note Feeling well. Minimal amount of lochia. Scant blood in bakri bag. Another 100cc removed from Bakri, now 160cc remains in balloon. Will plan to remove remaining in 1 hr if pt remains stable.
[2018-02-03 22:50] VITALS: BP 139/81; PULSE 96; TEMP 36.8; O2SAT 96
--- NOTE | 2018-02-03 23:44 | Vaginal Delivery Summary ---
Vaginal Delivery Summary Bakri balloon emptied, patient tolerated. Scant lochia. Uterus firm. Will monitor closely, labs in AM.
[2018-02-04] VITALS (17 sets, daily range): BP systolic 124–155; BP diastolic 71–88; PULSE 75–91; TEMP 36.5–36.9; O2SAT 95–99
[2018-02-04] MEDS: CEFAZOLIN IV 3,000 MG in SYRINGE 0 ML IV SCH (00:23)
[2018-02-04] MEDS: IBUPROFEN 600 MG TAB PO PRN ×2 (04:45→08:28)
[2018-02-04 07:20] LABS: HEMATOCRIT 19.3 % (37-47); HEMOGLOBIN 6.3 g/dL (12.0-16.0); MEAN CELL VOLUME 85.4 fL (80-100); MEAN CORPUSCULAR HEMOGLOBIN 27.9 pg (25-34); MEAN CORPUSCULAR HGB CONC 32.6 g/dl (32-36); MEAN PLATELET VOLUME 10.2 fL (7.4-10.4); PLATELET COUNT 126 K/uL (130-400); RED CELL DISTRIBUTION WIDTH CV 14.4 % (11.5-14.5); RED CELL DISTRIBUTION WIDTH SD 44.9 fL (36.4-46.3); WHITE BLOOD COUNT 9.85 K/uL (4.8-10.8)
--- NOTE | 2018-02-04 07:54 | Progress Note ---
Subjective Feb 04, 2018. Subjective conversation w/ patient Ambulation: limited ambulation Voiding: no voiding problems (taylor removed this morning, going on her own.) Passing Gas: Yes Diet Tolerance: Regular Diet Lochia: Moderate Pain: Improving Review of Systems Constitutional: No fever, No chills Respiratory: No shortness of breath Cardiac: No chest pain, No palpitations Abdomen: No nausea, No vomiting Objective Vital Signs Date Time Temp Pulse Resp B/P (MAP) Pulse Ox O2 Delivery O2 Flow Rate FiO2 02/04/18 04:40 36.7 90 18 142/87 (105) 98 Room Air 02/04/18 02:00 36.6 83 18 133/83 (100) 98 Room Air 02/04/18 02:00 98 Room Air 02/04/18 00:55 36.5 90 18 145/84 (104) 95 Room Air 02/03/18 22:50 96 Room Air 02/03/18 22:50 36.8 96 18 139/81 (100) 96 Room Air 02/03/18 19:40 100 Room Air 02/03/18 19:40 36.9 105 18 147/83 (104) 100 Room Air 02/03/18 16:05 36.8 103 20 137/78 (97) Room Air 02/03/18 16:05 Room Air 02/03/18 11:30 36.8 93 20 129/76 (93) Room Air 02/03/18 11:30 Room Air Physical Exam General Appearance: WELL-APPEARING Respiratory/Chest: normal breath sounds Cardiovascular: regular rate, rhythm Abdomen: soft Fundus: Firm Extremities: no calf tenderness Laboratory Results Last 24 Hours Test 02/03/18 10:03 02/03/18 10:14 02/04/18 06:34 Creatinine 0.84 mg/dl Est Creatinine Clear Calc Drug Dose 136.6 ml/min Estimated GFR () 103.6 Estimated GFR (Non- 89.4 White Blood Count 21.02 K/uL 9.85 K/uL Red Blood Count 2.97 M/uL 2.26 M/uL Hemoglobin 8.3 g/dL 6.3 g/dL Hematocrit 24.7 % 19.3 % Mean Corpuscular Volume 83.2 fL 85.4 fL Mean Corpuscular Hemoglobin 27.9 pg 27.9 pg Mean Corpuscular Hemoglobin Concent 33.6 g/dl 32.6 g/dl RDW Standard Deviation 42.5 fL 44.9 fL RDW Coefficient of Variation 13.8 % 14.4 % Platelet Count 191 K/uL 126 K/uL Mean Platelet Volume 10.5 fL 10.2 fL Assessment and Plan Post- Day#: 2 Continue Routine Care: Advised transfusion due to low Hgb. Ambulation encouraged Analgesia prn Discharge possible today. PGY1 Resident, Nova Wallaec MD Resident Physician Supervision Note: I was present with Dr. Wallace during the history and exam. I discussed the case with the resident and agree with the findings and plan as documented in the note. Any exceptions or clarifications are listed here: PPD#2. Hgb dropped from 8.3 to 6.3. Patient has scant lochia, fundus is firm. Ambulating ok. Denies weak/dizziness, appears pale. Discussed transfusion, RBA, informed consent. She would like to go ahead with transfusion. 2u PRBC ordered. Repeat CBC ordered for 1600. Discussed with patient that if she is stable, she could possibly go home this evening. Documented By: Uyen Garcia Resident Involvement: Resident Care Provided Care Provided: OB Delivery
--- NOTE | 2018-02-04 08:00 | Discharge Instructions ---
Discharge Instructions Date of Service Feb 04, 2018. Admission Reason for Admission: IUP Discharge Discharge Diagnosis / Problem: Vaginal Delivery Discharge Goals Goal(s): Routine recovery after delivery Medications Continue Dispensed Medications: supercream, dermaplast, tucks, lansinoh Activity Recommendations Activity Limitations: per Instructions/Follow-up section . Instructions / Follow-Up Instructions / Follow-Up ACTIVITY RECOMMENDATIONS: * Gradual return to full activity over the next 2-3 weeks. * No lifting - nothing heavier than baby over the next 2-3 weeks. * Do not engage in vigorous exercise, sexual activity or sports until cleared by your physician. * Do not drive or operate any motorized equipment until cleared by your physician. * You may shower/bathe daily. MEDICATIONS: For discomfort or pain, you may use Acetaminophen (Tylenol), Ibuprofen (Advil), or Naproxen (Aleve) following the package directions. For constipation you may use Colace following the package directions. BREAST CARE: If you are not breast feeding: * Wear a supportive bra 24 hours a day for one to two weeks. * Avoid stimulating your breasts and nipples as much as possible during the first few weeks after delivery. * When taking a shower, have the warm water hit your back, not breasts. * When your breasts feel full, apply ice packs. Usually three to four times a day helps ease the discomfort. * Take a mild pain medication (Tylenol / Motrin) when you are uncomfortable. If breast feeding: * Use breast milk to lubricate nipples. Lansinoh cream may be used for sore nipples. You do not need to remove cream prior to breast feeding. If using a different brand of cream, check the label for directions regarding removal of cream prior to nursing. * Wear a supportive bra. * If having problems with breasts or breast feeding, call a content management consultant or your health care provider. EPISIOTOMY CARE: After delivery, if you have an episiotomy (stitches), the following steps will ease discomfort and aid healing. * For the first 24 hours after delivery, place ice packs next to your episiotomy to help reduce swelling. * After the first 24 hour-period, sitz baths, either portable or in the tub, are suggested. A shower with a shower arm sprayed over the episiotomy may be comforting. * Elizabeth care should be done after each voiding and bowel movement. Squirt warm water from a plastic bottle over the perineum (region of the body between the anus and urinary opening) and pat dry. * Use Dermoplast to ease discomfort. Shake container. [place] directly over the episiotomy. Place a Tucks on a clean sanitary pad next to your episiotomy. SPECIAL CARE INSTRUCTIONS: When you are discharged from the hospital, it is important for you to follow the instructions listed below: * During the first week at home, you should be able to care for yourself and your baby. In addition, the usual light household activities are encouraged. * Limit your activities to the way you feel. Do not try to clean the house or move furniture. Be sensible. * If you actively engage in sports and have done so up until the time of your delivery, you may resume these activities as soon as you feel able. This may take up to one month or even longer. Use good judgment. * Continue to take your vitamins for at least six weeks after the of your baby. * Your diet need not be limited unless you were on a special diet before your delivery. Breast-feeding mothers need around 2500 calories per day and at least 64-80 ounces of fluid per day (8 to 10 glasses). * You should eat foods from the four major food groups. Crash diets or fad diets are to be avoided. Eating lean meats, fresh fruits and vegetables, low-fat dairy products, high fiber foods and a regular exercise program, will help you get back to your pre- weight without putting your health at risk. * Constipation is sometimes a problem after delivery. Take a mild laxative as needed. If breast feeding, Milk of Magnesia is acceptable to use. You may use a suppository or Fleets enema if no episiotomy. * A daily shower or tub bath is suggested. Be sure to thoroughly and gently dry the perineum. * A bloody vaginal discharge will usually continue until around four weeks post . A small amount of bleeding may continue for as long as six weeks. Vaginal discharge changes from the bright red bleeding after delivery to pink then brownish and finally yellowish-pink before becoming white and disappearing. * Bleeding may increase with activity. Your first period may come in 4-8 weeks. If you are breast feeding, your period may be delayed even longer. * [place] (sex) can begin whenever both you and your partner feel comfortable and do not have any form of genital infection. It is recommended that you wait at least six weeks for internal and external healing to occur. If you have questions, please talk to your health care practitioner. A condom should be used to prevent infection and . * Foreplay, gentle intercourse and lubrication is very important the first several times to prevent pain. A water-based lubricant such as K-Y jelly or Astroglide may be used. * If you have RH negative blood and your baby is RH positive, you will receive RHOGAM by injection prior to discharge. The nurse will give you a card to keep with you that has the date and place that you received RHOGAM after delivery. * During your care, you had a Rubella screen done to check for the presence of rubella antibodies in your blood. If your test was negative, you will receive a Rubella vaccine prior to discharge. This vaccine may cause a fever, soreness at the injection site and flu-like symptoms. If these symptoms persist, notify your health care practitioner. is not advised for one month after a Rubella vaccine. * Verbalizes understanding of car seat law as reviewed with patient nursing. * Car Seat hand-out given and reviewed with patient by nursing. * Shaken baby information reviewed with patient by nursing. Call you doctor if: * Heavy bleeding (saturating several pads an hour) or passing clots the size of your fist. * A fever >101 degrees F (38.3 degrees C) on two occasions four hours apart and /or chills. * Unusual pain in the pelvic or vaginal areas. * "Baby Blues" lasting longer than two weeks. If you have any questions or concerns, call your health care practitioner at . FOLLOW UP VISIT: * Please call the office at to schedule a 6 week examination. It is important you keep this appointment. It is important for you to make arrangements for either yearly or twice yearly check-ups thereafter. Current Hospital Diet Patient's current hospital diet: Regular OB Diet Discharge Diet Recommended Diet: Regular OB Diet Procedures Procedures Performed: EUA, curettage of uterus, placement of bakri balloon, repair of 2nd degree perineal laceration Pending Studies Studies pending at discharge: no Medical Emergencies . Who to Call and When: Medical Emergencies: If at any time you feel your situation is an emergency, please call 911 immediately. . Non-Emergent Contact Non-Emergency issues call your: Primary Care Provider . . "Provider Documentation" section prepared by Nova Wallace. .
[2018-02-04] MEDS: DOCUSATE SODIUM 100 MG CAP PO SCH ×2 (08:28→20:04)
[2018-02-04] MEDS: LABETALOL HCL 100 MG TAB PO SCH ×2 (08:28→20:03)
[2018-02-04 08:49] LABS: BASO % 0.1 %; BASO ABS # 0.01 K/uL (0-0.2); EOS % 1.1 %; EOS ABS # 0.11 K/uL (0-0.5); IG# 0.04 K/uL (0.00-0.02); LYMPH % 19.5 %; LYMPH ABS # 1.92 K/uL (1.2-3.4); MONO % 3.7 %; MONO ABS # 0.36 K/uL (0.11-0.59); NEUT % 75.2 %; NEUT ABS # 7.41 K/uL (1.4-6.5)
[2018-02-04 16:32] LABS: BASO % 0.1 %; BASO ABS # 0.01 K/uL (0-0.2); EOS % 1.5 %; EOS ABS # 0.16 K/uL (0-0.5); HEMATOCRIT 23.3 % (37-47); HEMOGLOBIN 7.9 g/dL (12.0-16.0); IG# 0.04 K/uL (0.00-0.02); LYMPH % 18.1 %; LYMPH ABS # 1.93 K/uL (1.2-3.4); MEAN CELL VOLUME 86.3 fL (80-100); MEAN CORPUSCULAR HEMOGLOBIN 29.3 pg (25-34); MEAN CORPUSCULAR HGB CONC 33.9 g/dl (32-36); MEAN PLATELET VOLUME 10.2 fL (7.4-10.4); MONO % 3.7 %; MONO ABS # 0.39 K/uL (0.11-0.59); NEUT % 76.2 %; NEUT ABS # 8.11 K/uL (1.4-6.5); PLATELET COUNT 144 K/uL (130-400); RED CELL DISTRIBUTION WIDTH CV 14.1 % (11.5-14.5); RED CELL DISTRIBUTION WIDTH SD 44.4 fL (36.4-46.3); WHITE BLOOD COUNT 10.64 K/uL (4.8-10.8)
[2018-02-04] MEDS ORDERED: LBT100 PO (19:29)
--- NOTE | 2018-02-09 11:13 | DISCHARGE SUMMARY ---
ADMISSION DIAGNOSES: 1. Post-dates intrauterine . 2. Induction of labor. 3. Advanced maternal age. 4. Gestational hypertension. DISCHARGE DIAGNOSES: 1. Same 2. hemorrhage with retained placenta. 3. Severe anemia requiring blood transfusion. PROCEDURE: 1. Normal spontaneous vaginal delivery. 2. Repair of second-degree perineal laceration. 3. Exam under anesthesia. 4. Curettage of the uterus. 5. Placement of Bakri balloon. 6. Transfusion of 2 units of packed red blood cells. BRIEF HISTORY AND HOSPITAL COURSE: A 38-year-old 1, para 0 who is postdates and came in for planned induction of labor. She received a Dolan ripening balloon on the night prior and came in on the day of her admission for planned Pitocin induction of labor. She proceeded in labor normally and had spontaneous rupture of membranes. She delivered a viable female infant and had a subsequent hemorrhage. The suspicion was that retained products were present as well as uterine atony and due to inability to perform a bedside exam adequately she was taken to the operating room for exam under anesthesia as well as curettage. She received uterotonic agents as well as had a curettage with suspected retained placenta and then placement of a Bakri balloon. Her total estimated blood loss was approximately 1000 mL. Her vaginal bleeding was monitored, she had serial labs and she was given IV antibiotics. She started with a hemoglobin of 12.4. The Bakri balloon was removed on her day #1 and her bleeding was stable. On her day #2, her hemoglobin was 6.3. For that reason, although asymptomatic, she was counseled about receiving 2 units of packed red cells and they were administered and she was discharged later that day. On the day of her discharge , she was tolerating a regular diet, voiding spontaneously without difficulty and ambulating without difficulty and stable for discharge to home. She was given routine discharge instructions and advised to follow up in 6 weeks for her checkup. Due to persistent elevated blood pressures in background history of gestational hypertension, she was discharged on labetalol 100 mg p.o. b.i.d. She had a post-transfusion hemoglobin of 7.9. [facility]
== END 2018-02-04 21:05 | disposition home or self-care (01) | DRG 767 ==
LOC: C.LD 07:36 → C.OBG 02-03 11:31
PROVIDERS: ADMIT Obstetrics & Gynecology; ATTEND Obstetrics & Gynecology
PROC: 3E0P7GC Introduction of Other Therapeutic Substance into Female Reproductive, Via Natural or Artificial Opening (ICD-10-PCS; 2018-02-01)
PROC: 0KQM0ZZ Repair Perineum Muscle, Open Approach (ICD-10-PCS; 2018-02-02)
PROC: 0W3R7ZZ Control Bleeding in Genitourinary Tract, Via Natural or Artificial Opening (ICD-10-PCS; 2018-02-02)
PROC: 10D17Z9 Manual Extraction of Products of Conception, Retained, Via Natural or Artificial Opening (ICD-10-PCS; 2018-02-02)
PROC: 10E0XZZ Delivery of Products of Conception, External Approach (ICD-10-PCS; principal; 2018-02-02 21:55)
PROC: 0W3R7ZZ Control Bleeding in Genitourinary Tract, Via Natural or Artificial Opening (ICD-10-PCS; principal; 2018-02-02 21:55)
DX: O48.0 Post-term pregnancy (principal); O72.0 Third-stage hemorrhage; O70.1 Second degree perineal laceration during delivery; Z88.2 Allergy status to sulfonamides; O09.813 Supervision of pregnancy resulting from assisted reproductive technology, third trimester; O13.4 Gestational [pregnancy-induced] hypertension without significant proteinuria, complicating childbirth; O99.02 Anemia complicating childbirth; Z3A.41 41 weeks gestation of pregnancy; Z37.0 Single live birth